=== PATIENT | male | born 1985 | race Caucasian/White ===

== ENCOUNTER 2022-07-19 13:55 | Emergency (ER) | payer BC, SELFPAY ==
[2022-07-19 14:01] VITALS: BP 131/78; PULSE 80; RESP 18; TEMP 36.8; O2SAT 99
--- NOTE | 2022-07-19 14:38 | ED.GENADUL_ITS ---
Discharge Plan Disposition Patient Disposition: Home Discharge Details Clinical Impression: Laceration of right calf Primary Care Provider: Mena,Local ED Provider: Keny Mora Home Meds and New Rx's Prescriptions: New cephalexin 500 mg capsule 500 mg PO Q6H Qty: 30 0RF Discharge Instructions Instructions: Laceration (ED) Additional Instructions: Suture removal in 8 days. Please keep wound clean and dry. You may change the bandage once a day or as needed. I would recommend a compressive bandage that was applied in the emergency department. Please abstain for physical activity involving any straining of the calf muscles for the next 2 weeks. You may take some Tylenol or Motrin for the pain. Please take the antibiotic as prescribed. Medical Decision Making 36-year-old healthy male who sustained laceration to the right calf. Up-to-date with his tetanus. Given that this was a piece of wood with a normal metallic edge antibiotics will be prescribed. 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 HPI General Date/Time Provider Initiated Documentation: 07/19/22 14:36 . HPI Narrative: 36-year-old presents to the emergency room for evaluation of a laceration to the right calf area. States that a piece of wood with a metallic edge fell onto his leg while he was doing some cleaning up at home. Bleeding controlled with pressure. Pain with ambulation. No fall. Patient up-to-date with tetanus, this was given last year. Isolated injury to the right calf Related Data Home Medications Medication Instructions Recorded Confirmed cephalexin 500 mg capsule 500 mg PO Q6H #30 caps 07/19/22 Previous Rx's Medication Instructions Recorded cephalexin 500 mg capsule 500 mg PO Q6H #30 caps 07/19/22 Allergies Allergy/AdvReac Type Severity Reaction Status Date / Time No Known Allergies Allergy Unverified 07/19/22 14:09 General Stated Complaint: Laceration CHAPIN: 4 Review of Systems Narrative: Constitutional negative, GI no nausea no vomiting, MSK no arthralgias no myalgias, skin see HPI, neuro no paresthesias distal to the injury hematological negative not on any blood thinners PFSH All Active Problems (Updated 07/19/22 @ 14:45 by Keny Mora MD) Laceration of right calf (Acute) Social History Smoking/Tobacco Use Status: Never Smoking risk assessment performed?: Yes Alcohol Intake: current Alcohol Intake frequency: 0-2 drinks per day Alcohol type: beer Substance use type: does not use Do you feel safe at home: Yes Do you feel safe in your relationship?: Yes Exam Narrative Exam Narrative: Adult normal exam General: A,A Ox3, Calm, no apparent distress, well developed, pleasant and cooperative Head Size/Shape: normocephalic, atraumatic Eyes Pupils: PERRLA Extraocular Mobility: intact and symmetrical Conjunctiva: non-injected, anicteric, no discharge Respiratory Respiratory Effort: no dyspnea Cardiovascular normal cap refill Musculoskeletal System Joints, Bones, and Muscles: no deformities Extremities: warm and well-perfused, no cyanosis, capillary refill <2 seconds Skin Skin Inspection: The right calf has a 8 cm laceration with abrasions, irregular edges. Superficial. Neurological Motor: normal tone, normal strength, moving all extremities equally Psychiatric: good insight, good judgement, normal mood and affect Course Vital Signs Vital signs: Vital Signs Temperature 36.8 C 07/19/22 14:01 Pulse 80 07/19/22 14:01 Respiratory Rate 18 07/19/22 14:01 Blood Pressure 131/78 07/19/22 14:01 Pulse Oximetry 99 07/19/22 14:01 Temperature 36.8 C 07/19/22 14:01 Temperature Source Oral 07/19/22 14:01 Pulse 80 07/19/22 14:01 Respiratory Rate 18 07/19/22 14:01 Respiratory Effort Normal, Non-Labored 07/19/22 14:03 Blood Pressure 131/78 07/19/22 14:01 Blood Pressure Position Supine 07/19/22 14:01 Pulse Oximetry 99 07/19/22 14:01 Oxygen Delivery Method Room Air 07/19/22 14:01 Oxygen Flow Rate 0 07/19/22 14:01 Pain Level 3 07/19/22 14:01 Procedures Laceration rt calf: Site: lower extremity Size (cm): 8 Description: irregular Depth: simple, single layer Local Anesthetic: Bupivicaine 0.25% Amount of anesthesia used (mL): 7 Pre-repair: wound explored, irrigated extensively and deep structures intact Skin layer closed with: other Size (cm): 3-0 Number of sutures: 8 Technique: simple, interrupted
[2022-07-19] MEDS: Cephalexin 500 MG CAP 1000 MG PO (14:56)
== END 2022-07-19 14:59 | disposition home or self-care (01) ==
PROVIDERS: Emergency Provider Emergency Medicine
DX: S81.811A Laceration without foreign body, right lower leg, initial encounter (principal); W26.8XXA Contact with other sharp object(s), not elsewhere classified, initial encounter
CPT/HCPCS: 12004